=== PATIENT | female | born 1935 | race Caucasian/White ===

== ENCOUNTER 2017-10-30 12:34 | Outpatient (CLI) | payer MEDICARE ==
[2017-10-30 13:01] LABS: Anion Gap 18 mmol/L (10-20); BUN (Urea Nitrogen) 113 mg/dL (9.8-20.1); Calc. Creatinine Clearance 0 mL/min (70-130); Carbon Dioxide 24 mmol/L (23-31); Chloride 87 mmol/L (98-107); Estimated GFR-MDRD 20; Glucose 83 mg/dL (83-110)
[2017-10-30 13:02] LABS: Sodium 124 mmol/L (136-145)
[2017-10-30 13:33] LABS: Follow-up Chemistry Comp? YES; Follow-up Result - Chemistry REPORT FAXED
== END 2017-10-30 12:35 | disposition home or self-care (01) ==
LOC: NAV LABSP 12:34
PROVIDERS: ATTEND Family Medicine
DX: I11.0 Hypertensive heart disease with heart failure (principal); I50.30 Unspecified diastolic (congestive) heart failure; R53.1 Weakness
CPT/HCPCS: 80048

== ENCOUNTER 2017-11-02 11:46 | Outpatient (CLI) | payer MEDICARE ==
[2017-11-02 12:10] LABS: Anion Gap 17 mmol/L (10-20); BUN (Urea Nitrogen) 119 mg/dL (9.8-20.1); Calc. Creatinine Clearance 0 mL/min (70-130); Calcium 9.8 mg/dL (7.8-10.44); Carbon Dioxide 22 mmol/L (23-31); Chloride 89 mmol/L (98-107); Estimated GFR-MDRD 15; Glucose 101 mg/dL (83-110); Potassium 4.4 mmol/L (3.5-5.1); Sodium 124 mmol/L (136-145)
[2017-11-02 13:13] LABS: Follow-up Chemistry Comp? YES; Follow-up Result - Chemistry REPORT FAXED
== END 2017-11-02 11:47 | disposition home or self-care (01) ==
LOC: NAV LAB 11:46
PROVIDERS: ATTEND Family Medicine
DX: I50.30 Unspecified diastolic (congestive) heart failure (principal)
CPT/HCPCS: 80048; 83880